=== PATIENT | male | born 1965 | race Caucasian/White ===

== ENCOUNTER → 2025-04-07 | Day surgery (SDC) | payer MEDICAID ==
[~2025-04-07] VITALS: Ht 180.3 cm; Wt 77.1 kg
[~2025-04-07] MED LIST: ALBU18HF2 IH; BICT1TAB PO; BUPIVACAINE HCL/PF 0.5% (5MG/ML) 10ML ONE; CLINDAMYCIN 900MG PREMIX 50 ML IV ONE; EPHEDRINE SULFATE 50MG/ML VIAL ONE; FENTANYL CITRATE/PF 50MCG/ML 2ML VIAL ONE; HYDROMORPHONE HCL/PF 2MG/ML INJ IV PRN; MIDAZOLAM HCL 2 MG/2 ML VIAL ONE; ONDANSETRON HCL 4MG/2ML INJ IV PRN; ONDANSETRON HCL 4MG/2ML INJ ONE; PHENYLEPHRINE HCL 10MG/ML 1ML IV ONE; PROPOFOL 200MG/20ML VIAL IV ONE; SKIN ADHESIVE 0.7 GM EA TOP ONE; UMEC1DIS IH
[2025-04-07] MEDS: LACTATED RINGERS 1,000 ML IV SCH (06:47)
== END | disposition home or self-care (01) ==
LOC: OR 05:49
PROVIDERS: ATTEND Surgery
DX: D17.21 Benign lipomatous neoplasm of skin and subcutaneous tissue of right arm (principal); J43.9 Emphysema, unspecified; Z21 Asymptomatic human immunodeficiency virus [HIV] infection status; Z79.899 Other long term (current) drug therapy; Z98.890 Other specified postprocedural states; Z88.0 Allergy status to penicillin; Z88.1 Allergy status to other antibiotic agents; Z88.8 Allergy status to other drugs, medicaments and biological substances
CPT/HCPCS: 24071; J3010; J0665; J3490 ×2; J2250; J2405; J2371; J2704